=== PATIENT | male | born 1940 | race Hispanic/Latino ===

== ENCOUNTER 2018-05-12 06:47 | Day surgery (SDC) | payer OTHER ==
[2018-05-12] MEDS ORDERED: NA CHLORIDE 0.9% 500 ML ONE (07:08)
[2018-05-12] MEDS ORDERED: LIDOCAINE 2% MPF 5 ML VIAL ONE (07:08)
[2018-05-12] MEDS ORDERED: BUPIVACAINE 0.25% PF 10 ML VIAL ONE (07:08)
[2018-05-12] MEDS ORDERED: TETRACAINE HCL 0.5% 2ML OPTH ONE (07:08)
[2018-05-12] MEDS: PHENYLEPHRINE 10% OPTH 5ML ONE ×3 (07:19→07:29)
[2018-05-12] MEDS: CYCLOPENTOLATE 1% OPTH 2 ML ONE ×3 (07:19→07:29)
[2018-05-12] MEDS ORDERED: EPINEPHRINE/PF 1 MG/ML AMP ONE (08:10)
[2018-05-12] MEDS ORDERED: NS 0.9% VIAL 10 ML ONE (08:10)
[2018-05-12] MEDS ORDERED: BALANCED SALT IRRIG PLAIN 500 ML BTL IRR ONE (08:11)
[2018-05-12] MEDS ORDERED: DUOVISC 1 KIT OPTH ONE (08:12)
[2018-05-12] MEDS ORDERED: PROPOFOL 200 MG/20 ML VIAL IV ONE ×2 (08:22→08:23)
[2018-05-12] MEDS ORDERED: LIDOCAINE 1% MPF 5 ML VIAL ONE (08:22)
[2018-05-12] MEDS: MOXIFLOXACIN HCL 10 DROPS/ML **OR USE OPTH ONE ×2 (08:40→09:02)
--- NOTE | 2018-05-12 09:09 | P.BOP ---
Preoperative diagnosis: Nuclear sclerotic and cortical cataract OS Postoperative diagnosis: Same Primary procedure: Phacoemulsification with IOL OS Estimated blood loss: None Anesthesia: Local (Subtenon's infusion with anesthesia for cataract surgery) Complications: None Implants: ZCB00 +22.0 Transferred to: Other (Day surgery) Condition: Good
--- NOTE | 2018-05-12 20:34 | OP ---
Date of Procedure: 05/12/2018 Surgeon: Magaly Cerda MD Anesthesiologist: Rodolfo Kumar CRNA Preoperative Diagnosis: Nuclear sclerotic cataract, left eye. Operation Performed: Phacoemulsification with intraocular lens implant, left eye. Anesthesia: Per cataract surgery. Complications: None. Description Of Procedure: In day surgery, the patient was prepped with Betadine and draped. A conju nctival incision was made in the inferior nasal quadrant with Lj scissors. A sub-Tenon block c onsisting of a 1:1 mixture of 2% Xylocaine and 0.25% bupivacaine was placed through the conjunctival incision with a blunt cannula. A [place] balloon was placed over the eye and the patient was transferr ed to the operating room. In the operating room the patient was prepped and draped in the usual sterile fashion for ophthalmic surgery. A lid speculum was placed in the left eye. Two paracentesis sites were made superiorly and inferiorly in the limbal cornea. Viscoat was placed in the anterior chamber and a crescent blade wa s used to make a corneal groove and tunnel, and a keratome was used to enter the anterior chamber. P rovisc was placed in the anterior chamber and a 360 degree capsulotomy was performed with a cystitome . The lens was hydrodissected with BSS and rotated freely. The lens was removed with a stop and cho p technique. 11.15 phaco CDE was used to remove the lens. Residual cortex was removed with the irri gation and aspiration. Provisc was placed in the capsular bag. A ZCB00 +22.0 lens was placed in the capsular bag without complications. Irrigation and aspiration were used to remove residual viscoela stic. The paracentesis sites were hydrated with BSS. The wound and paracentesis sites were inspecte d and found to be watertight. Vigamox 0.07 cc was placed intracamerally at the end of the procedure. The eye was irrigated with balanced salt solution. The eye was patched with a soft cotton patch an d Woodruff metal shield. The patient was returned to day surgery in good condition. Comments: Discharge Instructions: Mr. Espinoza is discharged to home in good condition. He is to follow up with Dr. Cerda in the morning. SARAH BETH/MARGA Voice ID: [id number] Report ID: [id number]
== END 2018-05-12 09:25 | disposition home or self-care (01) ==
LOC: OR 06:47
PROVIDERS: ATTEND Ophthalmology Retina Specialist
PROC: 08RK3JZ Replacement of Left Lens with Synthetic Substitute, Percutaneous Approach (ICD-10-PCS; principal; 2018-05-12 08:30)
DX: H25.12 Age-related nuclear cataract, left eye (principal); I10 Essential (primary) hypertension; Z88.1 Allergy status to other antibiotic agents
CPT/HCPCS: 66984; J0171

== ENCOUNTER → 2018-07-07 | Day surgery (SDC) | payer OTHER ==
[~2018-07-07] MED LIST: BALANCED SALT IRRIG PLAIN 500 ML BTL IRR ONE; CYCLOPENTOLATE 1% OPTH 2 ML ONE; DUOVISC 1 KIT OPTH ONE; EPINEPHRINE/PF 1 MG/ML AMP ONE; LIDOCAINE 2% MPF 5 ML VIAL ONE; MOXIFLOXACIN HCL 10 DROPS/ML **OR USE OPTH ONE; NA CHLORIDE 0.9% 500 ML ONE; NS 0.9% VIAL 10 ML ONE; PHENYLEPHRINE 10% OPTH 5ML ONE; PROPOFOL 200 MG/20 ML VIAL IV ONE
[2018-07-07] MEDS: TETRACAINE HCL 0.5% 2ML OPTH ONE ×2 (08:51→09:51)
[2018-07-07] MEDS: LIDOCAINE 2% MPF 5 ML VIAL ONE ×2 (08:51→09:52)
[2018-07-07] MEDS: BUPIVACAINE 0.25% PF 10 ML VIAL ONE ×2 (08:52→09:52)
--- NOTE | 2018-07-07 10:34 | P.BOP ---
Preoperative diagnosis: Nuclear sclerotic and cortical cataract OD Postoperative diagnosis: Same Primary procedure: Phacoemulsification with IOL OD Estimated blood loss: None Anesthesia: Local (Subtenon's infusion with anesthesia for cataract surgery) Complications: None Implants: ZCB00 +22.5 Transferred to: Other (Day surgery) Condition: Good
--- NOTE | 2018-07-07 21:30 | OP ---
Date of Procedure: 07/07/2018 Surgeon: Magaly Cerda MD Anesthesiologist: 1. Lottie Huitron CRNA. 2. Alber Sanchez M.D. Preoperative Diagnosis: Nuclear sclerotic cataract and cortical cataract, right eye. Operation Performed: Phacoemulsification with intraocular lens implant, right eye. Anesthesia: Per cataract surgery. Complications: None. Description Of Procedure: In day surgery, the patient was prepped with Betadine and draped. A conju nctival incision was made in the inferior nasal quadrant with Lj scissors. A sub-Tenon block c onsisting of a 1:1 mixture of 2% Xylocaine and 0.25% bupivacaine was placed through the conjunctival incision with a blunt cannula. A Honan balloon was placed over the eye and the patient was transferr ed to the operating room. In the operating room the patient was prepped and draped in the usual sterile fashion for ophthalmic surgery. A lid speculum was placed in the right eye. Two paracentesis sites were made superiorly an d inferiorly in the limbal cornea. Viscoat was placed in the anterior chamber and a crescent blade w as used to make a corneal groove and tunnel, and a keratome was used to enter the anterior chamber. Provisc was placed in the anterior chamber and a 360 degree capsulotomy was performed with a cystitom e. The lens was hydrodissected with BSS and rotated freely. The lens was removed with a stop and ch op technique. A 3.64 phaco CDE was used to remove the lens. Residual cortex was removed with the ir rigation and aspiration. Provisc was placed in the capsular bag. A ZCB00+22.5 lens was placed in th e capsular bag without complications. Irrigation and aspiration were used to remove residual viscoel astic. The paracentesis sites were hydrated with BSS. The wound and paracentesis sites were inspect ed and found to be watertight. Vigamox 0.07 cc was placed intracamerally at the end of the procedure . The eye was irrigated with balanced salt solution. The eye was patched with a soft cotton patch a nd Woodruff metal shield. The patient was returned to day surgery in good condition. Comments: The lens was hydrodelineated rather than hydrodissected. Discharge Instructions: Mr. Espinoza is discharged to home in good condition and is to follow up with Dr. Cerda in the morning. SARAH BETH/MARGA Voice ID: [id number] Report ID: [id number]
== END | disposition home or self-care (01) ==
LOC: OR 07:40
PROVIDERS: ATTEND Ophthalmology Retina Specialist
PROC: 08RJ3JZ Replacement of Right Lens with Synthetic Substitute, Percutaneous Approach (ICD-10-PCS; principal; 2018-07-07 09:30)
DX: H25.11 Age-related nuclear cataract, right eye (principal); H25.011 Cortical age-related cataract, right eye; H04.123 Dry eye syndrome of bilateral lacrimal glands; H35.3130 Nonexudative age-related macular degeneration, bilateral, stage unspecified; I10 Essential (primary) hypertension; Z88.1 Allergy status to other antibiotic agents; Z87.891 Personal history of nicotine dependence
CPT/HCPCS: 66984; J0171; J2704

== ENCOUNTER 2019-10-13 14:58 | Inpatient (IN) | payer OTHER ==
[2019-10-13] MEDS ORDERED: ONDANSETRON 4 MG/2 ML VIAL IV PRN (15:38)
[2019-10-13] MEDS ORDERED: LOPERAMIDE HCL 2 MG CAPSULE PO PRN (15:38)
[2019-10-13] MEDS ORDERED: POLYETHYL GLY 3350 17 GM/DOSE PO PRN (15:38)
[2019-10-13] MEDS ORDERED: ENOXAPARIN 40 MG/0.4 ML SQ SCH (16:00)
[2019-10-13 16:17] LABS: Basophils % 0.1 % (0-1.3); Hematocrit 38.7 % (39.6-49.0); Lymphocytes % 5.3 % (15.3-44.8); MPV 9.9 fL (7.6-11.3); RBC Red Blood Cell Count 4.38 M/uL (4.33-5.43)
[2019-10-13 16:21] LABS: Protime INR 1.52
[2019-10-13] MEDS: NACHLORIDE 0.45% 1,000 ML IV SCH (16:42)
[2019-10-13] MEDS: CEFTRIAXONE/SWI 1gm 1 GM/10 ML SYR IVP SCH (16:42)
[2019-10-13 16:44] LABS: Blood Morphology Comment NOT SEEN (NOT SEEN); Platelet Estimate ADEQ; Urine White Blood Cell Casts OK
[2019-10-13 16:50] LABS: Bilirubin Direct 0.3 mg/dL (0-0.2); Bilirubin Total 0.9 mg/dL (0.2-1.0); Magnesium 2.1 mg/dL (1.8-2.4); Phosphorus 2.3 mg/dL (2.5-4.9); Protein, Total 8.3 g/dL (6.4-8.2)
[2019-10-13 16:52] LABS: Thyroid Stimulating Hormone 5.39 uIU/mL (0.360-3.740)
--- NOTE | 2019-10-13 17:01 | RAD REPORT ---
EXAM DESCRIPTION: Tarsha Trujillo And Tawana (2 Views)10/13/2019 4:18 pm CLINICAL HISTORY: Cough COMPARISON: 2019 FINDINGS: Lungs are mildly to moderately hyperaerated The lungs appear clear of acute infiltrate. The heart is normal size IMPRESSION: No acute abnormalities displayed
[2019-10-13] MEDS: DIGOXIN 0.25 MG/ML AMP IV SCH (17:54)
[2019-10-13 19:43] VITALS: BMI 24.8
[2019-10-13 19:59] LABS: Urine Appearance CLOUDY; Urine Bilirubin NEGATIVE (NEG); Urine Blood 1+ (NEG); Urine Color DK YELLOW; Urine Glucose NEGATIVE (NEG); Urine Protein 1+ (NEG); Urine Specific Gravity 1.025 (1.005-1.030)
[2019-10-13 20:21] LABS: Urine Bacteria 20-50 /HPF (NONE SEEN); Urine Culture Reflex Order REFLEXED; Urine RBC <5 /HPF (NONE SEEN)
[2019-10-13] MEDS ORDERED: ONDANSETRON 4 MG (ODT) TAB PO PRN (21:47)
[2019-10-14] MEDS: DIGOXIN 0.25 MG/ML AMP IV SCH (00:02)
[2019-10-14] MEDS: DIPHENHYDRAMINE 25 MG TAB/CAP PO PRN ×2 (00:12→20:20)
[2019-10-14 05:31] LABS: Absolute Lymphocytes (CBC) 1.1 K/uL (0.7-4.9); Basophils % 0.3 % (0-1.3); Hematocrit 36.2 % (39.6-49.0); Lymphocytes % 9.1 % (15.3-44.8); MPV 10.2 fL (7.6-11.3)
[2019-10-14] MEDS: NACHLORIDE 0.45% 1,000 ML IV SCH ×2 (05:40→17:53)
[2019-10-14 05:52] LABS: Magnesium 2.1 mg/dL (1.8-2.4); Potassium 4.1 mmol/L (3.5-5.1)
[2019-10-14] MEDS: CEFTRIAXONE/SWI 1gm 1 GM/10 ML SYR IVP SCH (08:06)
[2019-10-14] MEDS: APIXABAN 5 MG TABLET PO SCH ×2 (08:06→20:20)
[2019-10-14] MEDS ORDERED: SOTALOL HCL 80 MG TAB PO ONE (08:33)
--- NOTE | 2019-10-14 09:05 | EKG ---
Test Date: 2019-10-13 Test Time: 21:35:30 Retail Loan Originator Assistant: RT MEASUREMENT RESULTS: Intervals: Rate: 144 CO: QRSD: 82 QT: 290 QTc: 449 [place]: P: CO: QRS: 67 T: 82 INTERPRETIVE STATEMENTS: Atrial flutter with variable AV block Septal infarct, age undetermined Abnormal ECG Compared to ECG 04/15/2015 11:45:20 Myocardial infarct finding now present Sinus rhythm no longer present First degree AV block no longer present Electronically Signed On 10-14-19 09:04:10 SHRUB PLANTER by Sg Sesay
--- NOTE | 2019-10-14 09:05 | EKG ---
Test Date: 2019-10-14 Test Time: 00:28:19 Skoog Machine Operator: RT MEASUREMENT RESULTS: Intervals: Rate: 92 GA: 252 QRSD: 82 QT: 328 QTc: 405 [place]: P: 63 GA: 252 QRS: 60 T: 69 INTERPRETIVE STATEMENTS: Sinus rhythm with 1st degree AV block Septal infarct, age undetermined Abnormal ECG Compared to ECG 10/13/2019 21:35:30 First degree AV block now present Atrial flutter no longer present Myocardial infarct finding still present Electronically Signed On 10-14-19 09:04:04 LIMNOLOGY TEACHER by Sg Sesay
--- NOTE | 2019-10-14 09:39 | CON ---
Mr. Espinoza is 78. Reason For Cardiology Consult: Atrial fibrillation. History Of Present Illness: The day before yesterday, the patient got dizzy, fell to the side. No i njuries, but he was unable to stand up for an hour without help. His eventually helped him up a nd managed to get an appointment with Dr. Meza yesterday, also a urologist, I suspected urinary trac t infection and hypotension, but they found he was in atrial fibrillation. In the ER, he was treated with some beta blockers I believe. In any event, he is in normal rhythm now. He did not receive a cardioversion. Mr. Espinoza has never had coronary heart disease. He has had urinary tract infections , some TIAs or mini strokes, not sure exactly which one. He has never had atrial fibrillation docume nted before yesterday. Medications: His home medications have been amlodipine, finasteride, losartan, and a multivitamin. Physical Examination: Vital Signs: 5 feet 10, 172 pounds. Blood pressure 142/76, heart rate 98 and 95, temperature 98.4. HEENT: Normal. Lungs: Clear. Heart: Within normal limits, although he is mildly tachycardic. Abdomen: Soft. Extremities: Normal. The patient has been placed on apixaban. I think that is the appropriate thing to do and regarding t he dose, the dose is correct at 5 mg twice a day. I think we should consider stopping amlodipine and stop the losartan and try him on Betapace to both keep him in normal rhythm larger percent of the ti me and control his blood pressure using the beta-cem effect of Betapace. If that does not work, we will consider other antiarrhythmic drugs or more advanced therapies such as ablations, but I suspect treating him with Betapace and apixaban will be very effective. MISSY/MARGA Voice ID: [id number] Report ID: [id number]
[2019-10-14] MEDS: ACETAMINOPHEN 325 MG TABLET PO PRN (16:28)
[2019-10-14] MEDS ORDERED: FINASTERIDE 5 MG TAB PO SCH (17:30)
[2019-10-14] MEDS: SOTALOL HCL 80 MG TAB PO SCH (17:53)
--- NOTE | 2019-10-14 21:01 | P.PN ---
Subjective Date of Service: 10/14/19 Chief Complaint: WEAK, UTI, NEW A FIB. Subjective: Improving MR. BARCLAY IS A LOT BETTER. HE IS STRONGER. YESTERDAY HAD NEW ONSET A FIB. I GAVE HIM TWO DOSE OF DIGOXIN, ELIQUIS PO BID AND HE CONVERTED TO SINUS IN A FEW HOURS. THIS AM HE IS NOW STARTED ON BETAPACE BY DR IRVIN. HIS WBC COUNT IS LOWER AND HIS BP HAS IMPROVED NOW FROM LOW DOWN TO 90 SYSTOLIC YESTERDAY. Review of Systems 10-point ROS is otherwise unremarkable General: Weakness, Malaise Cardiovascular: As per HPI Physical Examination - Vital Signs Temperature: 98.4 F Blood Pressure: 155/82 Pulse: 74 Respirations: 20 Pulse Ox (%): 96 - Physical Exam General: Alert, Mild distress (ANXIOUS AT BASELINE.) HEENT: Atraumatic, PERRLA, EOMI Neck: Supple, JVD not distended Respiratory: Clear to auscultation bilaterally, Normal air movement Cardiovascular: Regular rate/rhythm, Normal S1 S2 Gastrointestinal: Normal bowel sounds, No tenderness Musculoskeletal: No tenderness Integumentary: No rashes Neurological: Normal speech, Normal tone, Normal affect Lymphatics: No axilla or inguinal lymphadenopathy - Studies Laboratory Data (last 24 hrs) 10/14/19 05:10: Sodium 135 L, Potassium 4.1, BUN 29 H, Creatinine 1.14, Glucose 107 H, Magnesium 2.1 10/14/19 05:10: WBC 12.4 H D, Hgb 11.9 L, Hct 36.2 L, Plt Count 167 Medications List Reviewed: Yes Assessment And Plan - Current Problems (Diagnosis) (1) UTI (urinary tract infection) Current Visit: Yes Status: Acute Plan: IV ROCEPHIN IS WORKING. CULTURES PENDING. Qualifiers: Urinary tract infection type: site unspecified Hematuria presence: without hematuria Qualified Code(s): N39.0 - Urinary tract infection, site not specified (2) Sepsis Current Visit: Yes Status: Acute Plan: ABOVE. IV FLUIDS BP IS 140 SYSTOLIC NOW. Qualifiers: Sepsis type: sepsis due to unspecified organism Sepsis acute organ dysfunction status: without acute organ dysfunction Qualified Code(s): A41.9 - Sepsis, unspecified organism (3) New onset a-fib Current Visit: Yes Status: Acute Plan: HE IS BACK IN SINUS RHYTHM WITH DIGOXIN IV. NOW ON BETAPACE. WE STOPPED AMLODIPINE AND LOSARTAN. (4) Anxiety disorder Current Visit: Yes Status: Acute Plan: CONTINUE LEXAPRO. Qualifiers: Anxiety disorder type: generalized anxiety disorder Qualified Code(s): F41.1 - Generalized anxiety disorder (5) Dehydration Current Visit: Yes Status: Acute Plan: BP HAS IMPROVED WITH IV FLUIDS.
[2019-10-15 04:24] LABS: Basophils % 0.2 % (0-1.3); Hematocrit 34.9 % (39.6-49.0); RBC Red Blood Cell Count 3.94 M/uL (4.33-5.43)
[2019-10-15 04:40] LABS: BUN Blood Urea Nitrogen 18 mg/dL (7-18); Bicarbonate 28 mmol/L (21-32); Glucose Level 102 mg/dL (74-106); Potassium 4.1 mmol/L (3.5-5.1); Sodium Level 134 mmol/L (136-145)
[2019-10-15] MEDS: SOTALOL HCL 80 MG TAB PO SCH (05:28)
[2019-10-15] MEDS: NACHLORIDE 0.45% 1,000 ML IV SCH (05:37)
[2019-10-15] MEDS: ACETAMINOPHEN 325 MG TABLET PO PRN (07:15)
[2019-10-15] MEDS: CEFTRIAXONE/SWI 1gm 1 GM/10 ML SYR IVP SCH (07:32)
[2019-10-15] MEDS: APIXABAN 5 MG TABLET PO SCH (07:33)
[2019-10-15] MEDS: LOSARTAN POTASSIUM 50 MG TABLET PO SCH ×2 (07:45→07:47)
[2019-10-15 09:23] VITALS: O2SAT 92
[2019-10-15 11:16] VITALS: BP 149/78; TEMP 97.4
--- NOTE | 2019-10-15 11:36 | EKG ---
Test Date: 2019-10-15 Test Time: 08:01:39 Front Desk Assistant: BIN MEASUREMENT RESULTS: Intervals: Rate: 70 SC: 248 QRSD: 94 QT: 376 QTc: 406 [place]: P: 74 SC: 248 QRS: 37 T: 74 INTERPRETIVE STATEMENTS: Sinus rhythm with 1st degree AV block Otherwise normal ECG Compared to ECG 10/14/2019 00:28:19 Myocardial infarct finding no longer present Electronically Signed On 10-15-19 11:35:56 TIMBER HEWER by Heath Jean
--- NOTE | 2019-10-15 18:23 | PN ---
Date of Progress Note: 10/15/2019 Mr. Espinoza was seen today on 10/15/2019 after he came in with atrial fibrillation. Dr. Sesay had pu t him on sotalol and Eliquis. He is in sinus rhythm. No cardiac complaints today. His vital signs are stable. His chest is clear. He has no edema. The case was discussed with Dr. Meza. The patie nt can go home today on sotalol and Eliquis. Continue the rest of his medication. I will see him in the office in the next week or 2. He can go home today. JV/MARGA Voice ID: [id number] Report ID: [id number]
--- NOTE | 2019-10-15 21:50 | P.DS ---
Admission Date: 10/14/19 Discharge Date: 10/15/19 Disposition: ROUTINE DISCHARGE Discharge Condition: FAIR Reason for Admission: WEAK, UTI, NEW A FIB. - Problems (1) UTI (urinary tract infection) Status: Acute Qualifiers: Urinary tract infection type: site unspecified Hematuria presence: without hematuria Qualified Code(s): N39.0 - Urinary tract infection, site not specified (2) Sepsis Status: Acute Qualifiers: Sepsis type: sepsis due to unspecified organism Sepsis acute organ dysfunction status: without acute organ dysfunction Qualified Code(s): A41.9 - Sepsis, unspecified organism (3) New onset a-fib Status: Acute (4) Anxiety disorder Status: Acute Qualifiers: Anxiety disorder type: generalized anxiety disorder Qualified Code(s): F41.1 - Generalized anxiety disorder (5) Dehydration Status: Acute Hospital Course: SHEKHAR HAD FALLEN AT HOME. I ADMITED HIM FOR HYPOTENSION, DEHYDRATION, UTI AND ALSO HE HAD NEW ONSET A FIB. I REVERSED WITH IV DIGOXIN FOR TWO TIMES. HE WAS PLACED ON BETAPACE AND ELIQUIS. HIS WBC IMPROVED ON ROCEPHIN IV SO PLACED HIM ON CEFTIN PO. LATER I HAD PHONE CALL FROM DR. MCMANUS THAT FROM HIS OFFICE DAY EARLIER HE GREW PSEUDOMONA IN ADDTION TO E COLI. THIS WAS SENSITIVE TO LEVAQUIN. SO I WILL CONTINU BOTH CEFTIN AND LEVAQUIN FOR 7 DAYS AT LEAST. HE WILL COME TO OFFICE IN AM. Vital Signs/Physical Exam: Temp Pulse Resp BP Pulse Ox 97.4 F 67 18 149/78 H 95 10/15/19 11:12 10/15/19 11:12 10/15/19 11:12 10/15/19 11:12 10/15/19 11:12 Laboratory Data at Discharge: WBC 7.6 K/uL (4.3-10.9) D 10/15/19 03:54 Hgb 11.7 g/dL (13.6-17.9) L 10/15/19 03:54 Hct 34.9 % (39.6-49.0) L 10/15/19 03:54 Plt Count 174 K/uL (152-406) 10/15/19 03:54 PT 17.7 SECONDS (9.5-12.5) H 10/13/19 16:00 INR 1.52 10/13/19 16:00 APTT 23.7 SECONDS (24.3-36.9) L 10/13/19 16:00 Sodium 134 mmol/L (136-145) L 10/15/19 03:54 Potassium 4.1 mmol/L (3.5-5.1) 10/15/19 03:54 BUN 18 mg/dL (7-18) 10/15/19 03:54 Creatinine 0.81 mg/dL (0.55-1.3) 10/15/19 03:54 Glucose 102 mg/dL (74-106) 10/15/19 03:54 Phosphorus 2.3 mg/dL (2.5-4.9) L 10/13/19 16:00 Magnesium 2.0 mg/dL (1.8-2.4) 10/15/19 03:54 Total Bilirubin 0.9 mg/dL (0.2-1.0) 10/13/19 16:00 AST 21 U/L (15-37) 10/13/19 16:00 ALT 19 U/L (12-78) 10/13/19 16:00 Alkaline Phosphatase 68 U/L (45-117) 10/13/19 16:00 Troponin I 0.12 ng/mL (0.0-0.045) H 10/13/19 16:00 Home Medications: Amlodipine Besylate [Norvasc] 2.5 mg PO DAILY AFTER SUPPER 05/07/18 Finasteride [Proscar*] 5 mg PO DAILY AFTER SUPPER 05/07/18 Losartan Potassium [Cozaar*] 75 mg PO [id number] 05/07/18 Vit C/E/Zn/Coppr/Lutein/Zeaxan [Preservision Areds 2 Softgel] 1 each PO BID Apixaban [Eliquis] 5 mg PO BID #60 tablet 10/15/19 Cefuroxime [Ceftin] 250 mg PO BID #24 tab 10/15/19 Sotalol HCl [Betapace*] 40 mg PO BID 6AM 6PM #60 tab 10/15/19 New Medications: Apixaban [Eliquis] 5 mg PO BID #60 tablet Cefuroxime [Ceftin] 250 mg PO BID #24 tab Sotalol HCl [Betapace*] 40 mg PO BID 6AM 6PM #60 tab Followup: Heath Jean MD [ACTIVE - CAN ADMIT] -
[2019-10-20 11:34] LABS: Vitamin D 1,25-Dihydroxy Total 31 pg/mL (18-72); Vitamin D,1,25-OH2, D2 <8 pg/mL
== END 2019-10-15 14:25 | disposition home or self-care (01) | DRG 872 ==
LOC: 2ND 15:17 → OBSVTOIN 10-14 14:42
PROVIDERS: ADMIT Internal Medicine; ATTEND Internal Medicine
DX: A41.9 Sepsis, unspecified organism (principal); N39.0 Urinary tract infection, site not specified; B96.5 Pseudomonas (aeruginosa) (mallei) (pseudomallei) as the cause of diseases classified elsewhere; B96.20 Unspecified Escherichia coli [E. coli] as the cause of diseases classified elsewhere; I48.91 Unspecified atrial fibrillation; F41.9 Anxiety disorder, unspecified; E86.0 Dehydration
CPT/HCPCS: 36415; 71046; 80048; 80076; 81001; 82550; 82607; 82652; 83605; 83735; 84100; 84145; 84439; 84443; 84484; 85025; 85610; 85730; 87040; 87086; 87088; 93005; G0378; G0379; J0696; J1160; J1650